=== PATIENT | female | born 1990 ===

== ENCOUNTER 2018-09-30 12:12 | Emergency (ER) ==
[2018-09-30 12:19] VITALS: BP 134/85; TEMP 99.4; BMI 40.1
--- NOTE | 2018-09-30 12:41 | ED.PDOC ---
General ED Provider: Dr. BALBIR BUTLER Chief Complaint: Hand Pain/Injury Stated Complaint: right hand pain after her dog pulled her with Time Seen by Physician: 12:18 Mode of Arrival: Walk-In Information Source: Patient Exam Limitations: No limitations Nursing and Triage Documentation Reviewed and Agree: Yes Does patient meet sepsis criteria?: No If yes, has appropriate treatment been initiated?: No System Inflammatory Response Syndrome: Not Applicable Sepsis Protocol: For patient's 13 years and over: Temp is 96.8 and below OR 101 and greater Pulse >90 BPM Resp >20/minute Acutely Altered Mental Status Are patient's symptoms suggestive of a new infection, such as: -Pneumonia -Skin, Soft Tissue -Endocarditis -UTI -Bone, Joint Infection -Implantable Device -Acute Abdominal Infection -Wound Infection -Meningitis -Blood Stream Catheter Infection -Unknown Musculoskeletal Complaint Exam - Hand/Wrist Complaint/Exam Location of Pain: Reports: Right, Hand, Wrist Mechanism of Injury: Reports: Trauma (dog was on the leash and pulled her 2 days ago) Onset/Duration: 2 days Symptoms Are: Still present Onset of Pain: Reports: Immediate Initial Severity: Mild Current Severity: Mild Location: Reports: Discrete Character: Reports: Aching Alleviating: Reports: Rest Aggravating: Reports: Movement Associated Signs and Symptoms: Denies: Swelling, Redness, Bruising, Fever, Weakness, Numbness, Tingling Dominant Hand: Right Related Surgical History: Reports: None Hand/Wrist Findings: Absent: Swelling, Ecchymosis, Abnormal contour, Rotation, Ligamentous instability, Nail avulsion, Subungal hematoma, Erythema, Warmth, Other joint pain, Foreign body Tenderness: Present: Radius, Ulna. Absent: Snuff box Differential Diagnoses: Closed Fracture, Sprain, Strain Review of Systems - Review Of Systems Constitutional: Reports: No symptoms Eyes: Reports: No symptoms Ears, Nose, Mouth, Throat: Reports: No symptoms Respiratory: Reports: No symptoms Cardiac: Reports: No symptoms GI: Reports: No symptoms : Reports: No symptoms Musculoskeletal: Reports: Joint pain (right hand pain) Skin: Reports: No symptoms Neurological: Reports: No symptoms Endocrine: Reports: No symptoms Hematologic/Lymphatic: Reports: No symptoms All Other Systems: Reviewed and Negative Past Medical History - Past Medical History Previously Healthy: Yes Endocrine: Reports: None Cardiovascular: Reports: None Respiratory: Reports: None Hematological: Reports: None Gastrointestinal: Reports: None Genitourinary: Reports: None Neuro/Psych: Reports: None Musculoskeletal: Reports: None Cancer: Reports: None Last Menstrual Period: iud - Surgical History General Surgical History: Reports: None - Family History Family History: Reports: None - Social History Smoking Status: Current every day smoker, Light tobacco smoker Hx Substance Use: No Alcohol Screening: None Physical Exam - Physical Exam Appearance: Well-appearing, No pain distress, Well-nourished Eyes: FLOR, EOMI, Conjunctiva clear ENT: Ears normal, Nose normal, Oropharynx normal Respiratory: Airway patent, Breath sounds clear, Breath sounds equal, Respirations nonlabored Cardiovascular: RRR, Pulses normal, No rub, No murmur GI/: Soft, Nontender, No masses, Bowel sounds normal, No Organomegaly Musculoskeletal: Normal strength, ROM intact, No edema, No calf tenderness Skin: Warm, Dry, Normal color Neurological: Sensation intact, Motor intact, Reflexes intact, Cranial nerves intact, Alert, Oriented Psychiatric: Affect appropriate, Mood appropriate Interpretation - Radiology Interpretation Radiology Interpretation By: Radiologist Radiology Results: No acute changes Critical Care Note - Critical Care Note Total Time (mins): 0 Course - Course Orders, Labs, Meds: Orders Category Date Time Status HAND, RIGHT 3 VIEWS Stat RADS 09/30/18 12:31 Ordered WRIST, RIGHT 3 VIEWS Stat RADS 09/30/18 12:31 Ordered Vital Signs: Temp Pulse Resp BP Pulse Ox 09/30/18 12:14 99.4 F 85 16 134/85 96 Departure - Departure Time of Disposition: 13:00 Disposition: HOME SELF-CARE Discharge Problem: Injury of hand Hand sprain Qualifiers: Encounter type: initial encounter Laterality: right Qualified Code(s): S63.91XA - Sprain of unspecified part of right wrist and hand, initial encounter Sprain of wrist Qualifiers: Encounter type: initial encounter Laterality: right Qualified Code(s): S63.501A - Unspecified sprain of right wrist, initial encounter Instructions: Hand Sprain (ED) Condition: Good Pt referred to PMD for follow-up: Yes IPMP verified?: No Additional Instructions: Please call your Family Physician as soon as possible to schedule a follow-up appointment. Allergies/Adverse Reactions: Allergies No Known Allergies Allergy (Unverified 09/30/18 12:20) Home Medications: Ambulatory Orders 1 [No Reported Medications] 09/30/18
--- NOTE | 2018-09-30 13:19 | DI ---
EXAM: Three views of the right hand HISTORY: Pain COMPARISON: None available FINDINGS: No fracture or dislocation is identified. The joint spaces are maintained. No gross soft tissue abn ormality is evident. IMPRESSION: No acute osseous abnormality.
--- NOTE | 2018-09-30 13:19 | DI ---
EXAM: Three views of the right wrist HISTORY: Pain COMPARISON: None available FINDINGS: No fracture or dislocation is identified. The joint spaces are maintained. No gross soft tissue abn ormality is evident. IMPRESSION: No acute osseous abnormality.
== END 2018-09-30 13:38 | disposition home or self-care (01) ==
LOC: ED 12:12
DX: M25.541 Pain in joints of right hand (principal); Z72.0 Tobacco use; S63.91XA Sprain of unspecified part of right wrist and hand, initial encounter; S63.501A Unspecified sprain of right wrist, initial encounter
CPT/HCPCS: 99283